=== PATIENT | male | born 1940 | race African-American/Black ===

== ENCOUNTER 2017-02-01 16:01 | Inpatient (IN) | payer BC ==
[~2017-02-01] VITALS: Ht 175.3 cm; Wt 68.0 kg
[~2017-02-01 16:01] MED LIST: Z.0.NO CURRENT MEDS
[2017-02-01 16:03] VITALS: BP 180/92; PULSE 82; RESP 17; TEMP 98.2; O2SAT 99
--- NOTE | 2017-02-01 17:12 | PD ---
HPI Chief Complaint: Abnormal Results Time Seen by Provider: 17:00 Travel History International Travel<30 days: No Contact w/Intl Traveler<30days: No Traveled to known affect area: No History of Present Illness HPI This is a 76-year-old male who was sent here by Dr. Delgado to be admitted. The patient has been having generalized pruritus and dark colored urine for the past 2 weeks. He has also been experiencing some weight loss. Reportedly he had an outpatient workup which revealed a mass near his bile ducts as well as a bilirubin of 10. I spoke with Dr. Delgado and he is agreeable to having the patient admitted to himself. The patient denies abdominal pain, nausea or vomiting, fevers or chills, flank pain. No other complaints. [facility] Social History Alcohol Use: No Tobacco Use: No Substance Use: No Allergies-Medications (Allergen,Severity, Reaction): Coded Allergies: No Known Allergies (Verified , 03/20/09) Reported Meds & Prescriptions Reported Meds & Active Scripts Active Reported No Current Meds (Miscellaneous Medication) Misc Review of Systems Except as stated in HPI: all other systems reviewed are Neg Physical Exam Narrative GENERAL: Well-developed well-nourished male in no acute distress SKIN: Warm and dry. Positive jaundice HEAD: Atraumatic. Normocephalic. EYES: Pupils equal and round. Positive scleral icterus. ENT: No nasal bleeding or discharge. Mucous membranes pink and moist. NECK: Trachea midline. No JVD. CARDIOVASCULAR: Regular rate and rhythm. No murmur appreciated. RESPIRATORY: No accessory muscle use. Clear to auscultation. Breath sounds equal bilaterally. GASTROINTESTINAL: Abdomen soft, there is a palpable mass in the epigastrium. Nontender to palpation. No abdominal distention noted. MUSCULOSKELETAL: No obvious deformities. No edema. NEUROLOGICAL: Awake and alert. No obvious cranial nerve deficits. Motor grossly within normal limits. Normal speech. PSYCHIATRIC: Appropriate mood and affect; insight and judgment normal. Data Data Last Documented VS Vital Signs Date Time Temp Pulse Resp B/P Pulse Ox O2 Delivery O2 Flow Rate FiO2 02/01/17 16:29 66 18 99 Room Air 02/01/17 16:03 98.2 180/92 Orders Admit Order (Ed Use Only) (02/01/17 17:03) Iv Access Insert/Monitor (5/5/17 17:03) MDM Medical Decision Making Medical Screen Exam Complete: Yes Emergency Medical Condition: Yes Medical Record Reviewed: Yes Differential Diagnosis Cholangiocarcinoma, hepatitis, choledocholithiasis Narrative Course I discussed with Dr. Delgado who will admit the patient, no additional interventions necessary at this time. The patient is agreeable to being admitted. Diagnosis Primary Impression: Intraabdominal mass Additional Impressions: Total bilirubin, elevated Jaundice Admitting Information Admitting Physician Requests: Admit Ovidio Tan February 01, 2017 17:12
[2017-02-01 17:20] VITALS: BP 161/80; PULSE 62; RESP 18; O2SAT 99
[2017-02-01] MEDS ORDERED: SODIUM CHLORIDE 0.9% FLUSH 10 ML FLUSH IV FLUSH PRN (17:30)
[2017-02-01] MEDS ORDERED: ONDANSETRON HCL 4 MG/2 ML VIAL IVP PRN (17:30)
[2017-02-01] MEDS ORDERED: TEMAZEPAM 15 MG CAP PO PRN (17:30)
[2017-02-01] MEDS ORDERED: NALOXONE HCL 0.4 MG/ML AMP IV PRN (17:30)
--- NOTE | 2017-02-01 17:43 | HHI.HP ---
History of Present Illness Service INTERNAL MEDICINE Primary Care Physician RHETT DELGADO MD Admission Diagnosis MASS OF BILIARY TREE. OBSTRUCTIVE JAUNDICE. Diagnoses: History of Present Illness This patient is a 76 year old male who has a history of starting with the feeling of itching a great deal of the time. He persisted with continual worsening of the symptoms. When he was seen by his urologist, his urine was found to have elevated urobilinogen and bilirubin. CT Scan of the abdomen/ pelvis was performed and he was found with a mass of the biliary tree. He continued with the symptom of intractable itching and worsening jaundice. He is admitted for further evaluation of his status and treatment. He has denial of any recent major illness, infection or any trauma. Review of Systems Constitutional: COMPLAINS OF: Fatigue, Weight loss Ears, nose, mouth, throat: COMPLAINS OF: Hearing loss, Ear Pain, Running Nose Integumentary: COMPLAINS OF: Pruritus Past Family Social History Allergies: Coded Allergies: No Known Allergies (Verified , 03/20/09) Physical Exam Vital Signs Vital Signs Date Time Temp Pulse Resp B/P Pulse Ox O2 Delivery O2 Flow Rate FiO2 02/01/17 16:29 66 18 99 Room Air 02/01/17 16:03 98.2 82 17 180/92 99 Physical Exam GENERAL: This is a well-nourished, well-developed patient, in no apparent distress. SKIN: No rashes, ecchymoses or lesions. Cool and dry. HEAD: Atraumatic. Normocephalic. No temporal or scalp tenderness. EYES: Pupils equal round and reactive. Extraocular motions intact. No scleral icterus. No injection or drainage. ENT: Nose without bleeding, purulent drainage or septal hematoma. Throat without erythema, tonsillar hypertrophy or exudate. Uvula midline. Airway patent. NECK: Trachea midline. No JVD or lymphadenopathy. Supple, nontender, no meningeal signs. CARDIOVASCULAR: Regular rate and rhythm without murmurs, gallops, or rubs. RESPIRATORY: Clear to auscultation. Breath sounds equal bilaterally. No wheezes , rales, or rhonchi. GASTROINTESTINAL: Abdomen soft, non-tender, nondistended. No hepato-splenomegaly , or palpable masses. No guarding. MUSCULOSKELETAL: Extremities without clubbing, cyanosis, or edema. No joint tenderness, effusion, or edema noted. No calf tenderness. Negative Homans sign bilaterally. NEUROLOGICAL: Awake and alert. Cranial nerves II through XII intact. Motor and sensory grossly within normal limits. Five out of 5 muscle strength in all muscle groups. Normal speech. Assessment and Plan Assessment and Plan ASSESSMENT 1. Obstructive Jaundice. 2. Mass of the Biliary Tree. 3. Intractable Pruritus. 4. Chronic Peptic Ulcer Disease. 5. Gastroesophageal Reflux Disease. 6. Benign Prostatic Hypertrophy. 7. Elevated PSA. 8. Osteoarthritis. 9. Anxiety Disorder. 10. Dementia with Memory Loss. PLAN 1. Admit to the hospital as an Inpatient. 2. Intravenous hydration. 3. Consultation to Gastroenterology. 4. Antipruritic Medication. 5. Follow up imaging studies. 6. Follow up laboratory assessment. 7. DVT, PE and PUD prophylaxis. Rhett Delgado MD February 01, 2017 17:43
[2017-02-01] MEDS ORDERED: VITA10003 PO (17:49)
[2017-02-01] MEDS ORDERED: GARL2000 PO (17:49)
[2017-02-01] MEDS ORDERED: [UNRECOGNIZED DRUG - CODE] TOPICAL (17:49)
[2017-02-01] MEDS ORDERED: TAMS0.4C4 PO (17:51)
[2017-02-01] MEDS ORDERED: MEMA28CA PO (17:51)
[2017-02-01] MEDS: HEPARIN SODIUM - SQ 10,000 UNITS/ML VIAL SQ SCH (17:55)
[2017-02-01] MEDS: SODIUM CHLOR 0.45% 1000 ML INJ 1,000 ML IV SCH (17:55)
[2017-02-01 18:30] LABS: BLOOD, URINE SMALL (NEG); COMMENT (UR) CULT NOT INDICATED; CULTURE IF INDICATED CULT NOT INDICATED; GLUCOSE,URINE NEG (NEG); GRANULAR CAST, URINE 12 /lpf; KETONE, URINE NEG (NEG); MUCUS URINE FEW /lpf (OCC); NITRITE,URINE NEG (NEG); PH, URINE 5.5 (5.0-8.5)
[2017-02-01 18:32] LABS: URINE COLOR DARK-BROWN (YELLW/STRAW)
[2017-02-01] MEDS ORDERED: methylPREDNISolone SOD SUCC 125 MG/2 ML VIAL IV PUSH ONE (18:45)
[2017-02-01 19:43] LABS: AUTOMATED NEUTROPHIL # 4.8 TH/MM3 (1.8-7.7); BASOPHIL # 0.1 TH/MM3 (0-0.2); BASOPHIL % 1.6 % (0.0-2.0); EOSINOPHIL # 0.1 TH/MM3 (0-0.4); EOSINOPHIL % 1.8 % (0.0-4.0); HEMATOCRIT 45.5 % (39.0-51.0); LYMPHOCYTE # 0.6 TH/MM3 (1.0-4.8); MEAN CELL VOLUME 82.4 FL (80.0-100.0); MEAN CORPUSCULAR HEMOGLOBIN 27.2 PG (27.0-34.0); MEAN CORPUSCULAR HGB CONC 33.1 % (32.0-36.0); MONO % 9.5 % (0.0-8.0); NEUT % 78.1 % (16.0-70.0); PLATELET COUNT 265 TH/MM3 (150-450); RED BLOOD COUNT 5.52 MIL/MM3 (4.50-5.90); RED CELL DISTRIBUTION WIDTH 17.1 % (11.6-17.2); WHITE BLOOD COUNT 6.1 TH/MM3 (4.0-11.0)
[2017-02-01 19:57] LABS: HEMO FLAGS DIFF FINAL
[2017-02-01 20:00] VITALS: BP 167/85; PULSE 66; RESP 18; TEMP 96.8; O2SAT 97
[2017-02-01 20:07] LABS: ALKALINE PHOSPHATASE 579 U/L (45-117); ALT (GPT) 84 U/L (12-78); ANION GAP 10 MEQ/L (5-15); AST (GOT) 100 U/L (15-37); BICARBONATE 24.4 MEQ/L (21.0-32.0); BLOOD UREA NITROGEN 19 MG/DL (7-18); CHLORIDE 103 MEQ/L (98-107); GLOMERULAR FILTRATION RATE 44 ML/MIN (>89); MAGNESIUM 2.2 MG/DL (1.5-2.5); SODIUM (NA) 137 MEQ/L (136-145)
[2017-02-01 20:08] LABS: POTASSIUM 3.9 MEQ/L (3.5-5.1); TOTAL BILIRUBIN ADULT 26.8 MG/DL (0.2-1.0)
[2017-02-01 21:47] LABS: APTT (PATIENT) 31.3 SEC (24.3-30.1); INTERNATIONAL NORMALIZED RATIO 1.2 RATIO; PROTHROMBIN TIME - PATIENT 13.9 SEC (9.8-11.6)
[2017-02-01] MEDS: MEMANTINE HCL 10 MG TAB PO SCH (22:06)
[2017-02-01] MEDS: TAMSULOSIN HCL 0.4 MG CAP PO SCH (22:06)
[2017-02-01] MEDS: SODIUM CHLORIDE 0.9% FLUSH 10 ML FLUSH IV FLUSH SCH (22:07)
[2017-02-01] MEDS: hydrOXYzine HCL 25 MG TAB PO PRN (22:09)
[2017-02-02] VITALS: BP 157/82; PULSE 68; RESP 19; TEMP 97.9; O2SAT 98
[2017-02-02 04:00] VITALS: BP 156/80; PULSE 78; RESP 19; TEMP 97.8; O2SAT 97
[2017-02-02] MEDS: HEPARIN SODIUM - SQ 10,000 UNITS/ML VIAL SQ SCH ×2 (04:54→16:50)
[2017-02-02] MEDS: hydrOXYzine HCL 25 MG TAB PO PRN ×2 (04:55→20:31)
[2017-02-02 07:10] LABS: AUTOMATED NEUTROPHIL # 4.6 TH/MM3 (1.8-7.7); BASOPHIL % 0.4 % (0.0-2.0); EOSINOPHIL % 0.2 % (0.0-4.0); HEMATOCRIT 39.7 % (39.0-51.0); LYMPH % 4.6 % (9.0-44.0); LYMPHOCYTE # 0.2 TH/MM3 (1.0-4.8); MEAN CELL VOLUME 80.8 FL (80.0-100.0); MEAN CORPUSCULAR HEMOGLOBIN 28.1 PG (27.0-34.0); MEAN CORPUSCULAR HGB CONC 34.7 % (32.0-36.0); MONO % 1.8 % (0.0-8.0); PLATELET COUNT 249 TH/MM3 (150-450); RED BLOOD COUNT 4.92 MIL/MM3 (4.50-5.90); WHITE BLOOD COUNT 4.9 TH/MM3 (4.0-11.0)
[2017-02-02 07:11] LABS: BICARBONATE 25.8 MEQ/L (21.0-32.0); INDIRECT BILIRUBIN 3.5 MG/DL (0.0-0.8); MAGNESIUM 2.1 MG/DL (1.5-2.5); TOTAL BILIRUBIN ADULT 24.4 MG/DL (0.2-1.0)
[2017-02-02] MEDS: SODIUM CHLOR 0.45% 1000 ML INJ 1,000 ML IV SCH ×2 (07:20→20:26)
[2017-02-02 07:23] LABS: HEMO FLAGS AUTO DIFF
--- NOTE | 2017-02-02 07:23 | PD.CONS ---
GI Consult GI Consult Thank you for the consultation, FUll consult dictated. ASSESSMENT/PLAN: 1. Obstructive pain less jaundice suspicious for malignant pathology, no s/s of cholangitis. 2. 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 3. Itching due to jaundice 4. GERd 6. Elevated Cr. ? acute vs chronic PLAN: 1. Need to obtain CT scan done at the outside facility and scan images to PACS for review 2. Start Ursodiol 300 mg po bid 3. Labs, CA 19-9, CEA, AFP, CBC, CMP 4. If kidney function improves then ideally MRI with Jimenez and MRCP would be beneficial. 5. Depending on the location the biliary tumor pt will need ERCP with bx. and metal stent placement. (ideally ERCP with spyglass cholangioscopy directed bx and fully covered metal stent placement) this equipment is available at [facility]. May have to consider doing this outpt. 6. Further recs to follow. It was a pleasure seeing Fears,Indra Walter Sr . Thank you for this consult. Entered by: Lou Villarreal MD February 02, 2017 07:23
[2017-02-02 08:00] VITALS: BP 135/74; PULSE 68; RESP 16; TEMP 97.1; O2SAT 98
[2017-02-02] MEDS: CHOLECALCIFEROL (VIT D3) 1000 UNIT TAB PO SCH (08:33)
[2017-02-02] MEDS: SODIUM CHLORIDE 0.9% FLUSH 10 ML FLUSH IV FLUSH SCH ×2 (08:33→20:25)
[2017-02-02] MEDS: MEMANTINE HCL 10 MG TAB PO SCH ×2 (08:33→20:24)
[2017-02-02 09:48] LABS: PLATELET ESTIMATE SMEAR NORMAL (NORMAL); PLATELET MORPHOLOGY ENLARGED (NORMAL); SCAN/DIFF AUTO DIFF CONFIRMED
--- NOTE | 2017-02-02 10:19 | EKG ---
Date Performed: 02/01/2017 Time Performed: 18:03:36 PTAGE: 76 years EKG: Sinus rhythm POSSIBLE RIGHT VENTRICULAR CONDUCTION DELAY SEPTAL MYOCARDIAL INFARCTION ABNORMAL ECG PREVIOUS TRACING : 03/20/2009 09.39 DOCTOR: Jana Oleary Interpretating Date/Time 02/02/2017 10:18:00
[2017-02-02] MEDS: URSODIOL 300 MG CAP PO SCH ×2 (10:38→20:24)
--- NOTE | 2017-02-02 10:47 | MB ---
cc: NATE DELGADO M.D. RICKI ICD DATE OF CONSULTATION: 02/02/2017 DATE OF : [address] Nate Delgado. REASON FOR CONSULTATION Elevated bilirubin, obstructive jaundice. HISTORY OF PRESENT ILLNESS This is a very pleasant 76-year-old -[place] gentleman who was in his general state of health until about [id number] weeks ago began having itching on his skin and change of his urine into a darker color as well as nataly colored bowel movements. Due to dark urine, he made an appointment with his urologist and followed up with them. The patient apparently underwent a CT scan of the abdomen at his urologist and subsequently was told that he has a possible mass in the biliary tree. Since then he followed up with his primary care physician who promptly advised him to come to the hospital for further workup and evaluation. He continues to have diffuse itching, denies any abdominal pain, no nausea or vomiting. He does have a reduced appetite and has had some weight loss approximately 5 or 10 pounds. PAST MEDICAL HISTORY 1. Gastroesophageal reflux disease. 2. Benign prostatic hypertrophy. 3. Hypertension. PAST SURGICAL HISTORY None. FAMILY HISTORY No GI malignancies. SOCIAL HISTORY Denies any tobacco, alcohol or drug abuse. ALLERGIES NO KNOWN DRUG ALLERGIES. HOME MEDICATIONS Please MAR for a complete accurate list. REVIEW OF SYSTEMS A 12-point review of systems was obtained by me and essentially negative or noncontributory except for the above-mentioned in the HPI. PHYSICAL EXAMINATION VITAL SIGNS: Temperature 97.8, heart rate 78, respiration 19, blood pressure 156/80, 97% on room air. GENERAL: Alert, oriented, no acute distress. HEAD, EYES, EARS, NOSE AND THROAT: Pupils: Scleral icterus but equal, round and reactive to light. Extraocular movements are intact. NECK: Supple, nontender. No carotid bruits. RESPIRATORY: Respirations clear to auscultation. CARDIOVASCULAR: Normal rate and rhythm. GASTROINTESTINAL: Abdomen soft, nontender and nondistended. Bowel sounds are present in all four quadrants. GENITOURINARY: No CVA tenderness. LYMPHATICS: No lymphadenopathy. MUSCULOSKELETAL: Normal range of motion. SKIN: Warm, dry and intact. NEUROLOGIC: Alert and oriented. No focal deficits noted. PSYCHIATRIC: Cooperative. Appropriate mood and affect. LABORATORY DATA WBC 6.1, hemoglobin 15.1, platelet count of 265. Sodium 137, potassium 3.9, chloride 103, bicarb 24.4, BUN 19, creatinine 1.81, total bilirubin 26.8, AST 100, ALT 84, alkaline phosphatase 579. Coagulation: INR 1.2, PT 13.9. IMAGING STUDIES The imaging test that was performed was done at an outside facility. I do not have the official report or images to review at this time. IMPRESSION 1. Obstructive jaundice with elevated bilirubin of 26.8 and an alkaline phosphatase greater than 500, certainly raises the suspicion for the possibility of diffuse biliary obstruction and infiltration of the biliary tree, highly suspicious for a malignant process. Differential includes cholangiocarcinoma, Klatskin tumor, less likely pancreatic adenocarcinoma, the possibility of hepatocellular carcinoma. 2. Generalized intractable itching secondary to jaundice, improved with usage of Solu-Medrol and Atarax. 3. Weight loss, likely secondary to a malignant pathology. RECOMMENDATIONS 1. Repeat lab work including CBC, CMP. Add CA 19-9, CEA, alpha-fetoprotein. 2. We will need to obtain the patient's recent outpatient CT scan for further evaluation. Depending on the location of the biliary obstruction, the patient will likely need an ERCP with biopsies. If his tumor is in the extrahepatic bile ducts, the patient would likely benefit from an ERCP with SpyGlass cholangioscopy and directed biopsies for accurate diagnosis; unfortunately, this is not available at [facility]. It is available at [facility]. If this is the case, we may consider once the patient's symptoms improve discharge with close outpatient followup and in the next [id number] working days for an outpatient above-mentioned procedure. 3. We will start ursodeoxycholic acid in order to help alleviate some of the itching and improve biliary flow. 4. Diet as tolerated. 5. Activity as tolerated. 6. We will request the community recreation programmer to obtain the CT scan results and imaging to be uploaded into our radiology system. Thank you for allowing me to participate in the care of this patient. Please do not hesitate to contact me for any further questions. MD KASSANDRA Adame/JOSUÉ /7:08 AM /10:06 AM MTDKade
[2017-02-02 12:00] VITALS: BP 127/77; PULSE 66; RESP 16; TEMP 96.3; O2SAT 98
--- NOTE | 2017-02-02 12:00 | HHI.PR ---
Subjective Remarks He was seen by Gastroenterology earlier today. I had discussion with the Odalis I. consult with note of the plan for him. He reports no new adverse complaints. His complaint for itching is somewhat better today. He appears to be tolerating the medications well. Ursodiol has been added to his treatment regimen as well. Objective - Vital Signs Date Time Temp Pulse Resp B/P Pulse Ox O2 Delivery O2 Flow Rate FiO2 02/02/17 08:00 97.1 68 16 135/74 98 02/02/17 04:00 97.8 78 19 156/80 97 02/02/17 00:00 97.9 68 19 157/82 98 02/01/17 20:00 96.8 66 18 167/85 97 02/01/17 17:20 62 18 161/80 99 Room Air 02/01/17 16:29 66 18 99 Room Air 02/01/17 16:03 98.2 82 17 180/92 99 I/O 02/01/17 02/01/17 02/01/17 02/02/17 02/02/17 02/02/17 07:00 15:00 23:00 07:00 15:00 23:00 Intake Total 120 ml 770 ml Output Total 300 ml Balance 120 ml 470 ml Intake Oral 120 ml 120 ml IV Total 650 ml Output Urine Total 300 ml # Voids 1 2 # Bowel Movements 0 0 Result Diagram: 02/02/17 0500 02/02/17 0500 Objective Remarks GENERAL: Alert and appears in less distress for the profound itching that he had on admission. SKIN: Warm and dry. HEAD: Normocephalic. Atraumatic. EYES: Less scleral icterus today. No injection or drainage. NECK: Supple, trachea midline. No JVD or lymphadenopathy. CARDIOVASCULAR: Regular rate and rhythm without murmurs, gallops, or rubs. RESPIRATORY: Breath sounds equal bilaterally. No accessory muscle use. GASTROINTESTINAL: Abdomen soft, non-tender, nondistended. MUSCULOSKELETAL: No cyanosis, or edema. Pulses are at 3+/4+. BACK: Nontender without obvious deformity. No CVA tenderness. A/P Assessment and Plan ASSESSMENT 1. Obstructive Jaundice. 2. Mass of the Biliary Tree. 3. Intractable Pruritus-improving. 4. Chronic Kidney Disease, Stage 3. 5. Proteinuria. 6. Chronic Peptic Ulcer Disease. 7. Gastroesophageal Reflux Disease. 8. Benign Prostatic Hypertrophy. 9. Elevated PSA. 10. Osteoarthritis. 11. Anxiety Disorder. 12. Dementia with Memory Loss. PLAN 1. Continue with the current medication regimen. 2. Contiue with modest intravenous hydration. 3. Gastroenterology follows. 4. Continue antipruritic medication. 5. Intervention as per Gastroenterology. 6. Follow up laboratory assessment will be done. 7. DVT, PE and PUD prophylaxis. Rhett Delgado MD February 02, 2017 12:00
[2017-02-02 16:00] VITALS: BP 134/70; PULSE 60; RESP 16; TEMP 97.2; O2SAT 99
[2017-02-02 20:00] VITALS: BP 133/77; PULSE 72; RESP 18; TEMP 97.5; O2SAT 98
[2017-02-02] MEDS: TAMSULOSIN HCL 0.4 MG CAP PO SCH (20:24)
[2017-02-03] VITALS: BP 126/71; PULSE 68; RESP 17; TEMP 97; O2SAT 98
[2017-02-03] MEDS: HEPARIN SODIUM - SQ 10,000 UNITS/ML VIAL SQ SCH (05:23)
[2017-02-03] MEDS: hydrOXYzine HCL 25 MG TAB PO PRN (05:29)
[2017-02-03 08:00] VITALS: BP 151/81; PULSE 74; RESP 16; TEMP 98.7; O2SAT 99
[2017-02-03] MEDS: SODIUM CHLORIDE 0.9% FLUSH 10 ML FLUSH IV FLUSH SCH (09:00)
[2017-02-03] MEDS: CHOLECALCIFEROL (VIT D3) 1000 UNIT TAB PO SCH (09:03)
[2017-02-03] MEDS: URSODIOL 300 MG CAP PO SCH (09:03)
[2017-02-03] MEDS: MEMANTINE HCL 10 MG TAB PO SCH (09:03)
[2017-02-03] MEDS: SODIUM CHLOR 0.45% 1000 ML INJ 1,000 ML IV SCH (10:00)
[2017-02-03 12:00] VITALS: BP 158/82; PULSE 76; RESP 16; TEMP 96.9; O2SAT 99
--- NOTE | 2017-02-03 12:44 | HHI.GIFU ---
GI Follow-up Note Consult Follow-up Subjective: Patient laying in bed comfortably, no new complaints, itching better Objective: PHYSICAL EXAMINATION: Vitals signs stable No fever HEENT: Pupils round and reactive to light; normocephalic; atraumatic; no jaundice. Throat is clear. NECK: Neck is supple, no JVD, no lymphadenopathy. CHEST: Chest is clear to auscultation and percussion. CARDIAC: Regular rate and rhythm with no murmur gallop or rubs. ABDOMEN: Soft, nondistended, nontender; no hepatosplenomegaly; bowel sounds are present in all four quadrants. EXTREMITIES: No clubbing, cyanosis, or edema. SKIN: Normal; no rash; no jaundice. SAWYER HELPER: No focal deficits; alert and oriented times three. Available Data (labs, X- Rays, Procedues) : Reviewed the results of CT scan from [facility]. labs reviewed ASSESSMENT/PLAN: 1. 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 painless obstructive jaundice 3, Pancreatic lesion. 4. itching 5. Stage III ckd PLAN: 1. Discusses with Dr Delgado, pt will need EUS and ERCP with cholangioscopy and bx. will plan of placing metal stent for drainage 2. Outpt work up and treatment 3. will have the office call and set up procedure in the next several days. 4. discussed with pt in detail. he is agreeable. It was a pleasure seeing Fears,Indra Walter Sr. Thank you for this consult. Entered by: Lou Villarreal MD February 03, 2017 12:44
[2017-02-03 16:00] VITALS: BP 167/83; PULSE 65; RESP 16; TEMP 97; O2SAT 100
--- NOTE | 2017-02-03 16:26 | HHI.PR ---
Subjective Remarks Discussion was done with the Garden Equipment Mechanic with regard to the plan for this patient. He is doing much better with little complaint for any itching. His appetite is very good as well. Objective - Vital Signs Date Time Temp Pulse Resp B/P Pulse Ox O2 Delivery O2 Flow Rate FiO2 02/03/17 12:00 96.9 76 16 158/82 99 02/03/17 08:00 98.7 74 16 151/81 99 02/03/17 00:00 97.0 68 17 126/71 98 02/02/17 20:00 97.5 72 18 133/77 98 I/O 02/02/17 02/02/17 02/02/17 02/03/17 02/03/17 02/03/17 07:00 15:00 23:00 07:00 15:00 23:00 Intake Total 770 ml 60 ml 1172 ml 633 ml 180 ml Output Total 300 ml 300 ml 950 ml Balance 470 ml 60 ml 872 ml -317 ml 180 ml Intake Oral 120 ml 60 ml 240 ml 240 ml 180 ml IV Total 650 ml 932 ml 393 ml Output Urine Total 300 ml 300 ml 950 ml # Voids 2 2 4 # Bowel Movements 0 0 1 Result Diagram: 02/02/17 0500 02/02/17 0500 Objective Remarks GENERAL: Alert and well oriented. SKIN: Warm and dry. HEAD: Normocephalic. Atraumatic. EYES: No scleral icterus. No injection or drainage. NECK: Supple, trachea midline. No JVD or lymphadenopathy. CARDIOVASCULAR: Regular rate and rhythm without murmurs, gallops, or rubs. RESPIRATORY: Breath sounds equal bilaterally. No accessory muscle use. GASTROINTESTINAL: Abdomen soft, non-tender, nondistended. MUSCULOSKELETAL: No cyanosis, or edema. BACK: Nontender without obvious deformity. No CVA tenderness. A/P Assessment and Plan ASSESSMENT 1. Obstructive Jaundice. 2. Mass of the Biliary Tree. 3. Intractable Pruritus-improving. 4. Chronic Kidney Disease, Stage 3. 5. Proteinuria. 6. Chronic Peptic Ulcer Disease. 7. Gastroesophageal Reflux Disease. 8. Benign Prostatic Hypertrophy. 9. Elevated PSA. 10. Osteoarthritis. 11. Anxiety Disorder. 12. Dementia with Memory Loss. OVERALL, MUCH IMPROVED. PLAN 1. Continue with the current medication regimen. 2. Gastroenterology disposition is noted. 3. Keep up good fluid hydration. HOME TODAY. Rhett Delgado MD February 03, 2017 16:26
[2017-02-03] MEDS ORDERED: Ursodiol PO (16:30)
== END 2017-02-03 17:35 | disposition home or self-care (01) | DRG 435 ==
LOC: NEPD 16:01 → NEDA 17:06 → N07B 19:04
PROVIDERS: ADMIT Internal Medicine; ATTEND Internal Medicine
DX: C24.0 Malignant neoplasm of extrahepatic bile duct (principal); K83.1 Obstruction of bile duct; N18.3 Chronic kidney disease, stage 3 (moderate); I12.9 Hypertensive chronic kidney disease with stage 1 through stage 4 chronic kidney disease, or unspecified chronic kidney disease; F03.90 Unspecified dementia, unspecified severity, without behavioral disturbance, psychotic disturbance, mood disturbance, and anxiety; K27.7 Chronic peptic ulcer, site unspecified, without hemorrhage or perforation; H91.90 Unspecified hearing loss, unspecified ear; R63.4 Abnormal weight loss; L29.9 Pruritus, unspecified; K21.9 Gastro-esophageal reflux disease without esophagitis; N40.0 Benign prostatic hyperplasia without lower urinary tract symptoms; R80.9 Proteinuria, unspecified; M19.90 Unspecified osteoarthritis, unspecified site; F41.9 Anxiety disorder, unspecified; Z68.22 Body mass index [BMI] 22.0-22.9, adult
CPT/HCPCS: 80048; 80053; 80076; 81001; 82105; 82378; 82977; 83735; 85025; 85610; 85652; 85730; 86301; 93005; J1644; J2930